=== PATIENT | female | born 1985 | race Caucasian/White ===

== ENCOUNTER → 2019-09-21 | Outpatient (CLI) | payer OTHER | LOC: COL.RAD 07:20 | DX: N83.201 Unspecified ovarian cyst, right side (principal); Q51.3 Bicornate uterus | CPT/HCPCS: A9585 ==

== ENCOUNTER → 2021-04-12 | Outpatient (CLI) | payer OTHER | LOC: MHCPAIN 09:58 | DX: M47.812 Spondylosis without myelopathy or radiculopathy, cervical region (principal); M54.2 Cervicalgia; R51.9 Headache, unspecified; G89.29 Other chronic pain | CPT/HCPCS: G0463 ==

== ENCOUNTER → 2021-05-15 | Outpatient (CLI) | payer OTHER | LOC: MHCPAIN 12:10 | DX: M47.812 Spondylosis without myelopathy or radiculopathy, cervical region (principal); M54.2 Cervicalgia; R51.9 Headache, unspecified ==

== ENCOUNTER → 2021-05-23 | Outpatient (CLI) | payer OTHER | LOC: MHCPAIN 15:10 | DX: M47.812 Spondylosis without myelopathy or radiculopathy, cervical region (principal); M54.2 Cervicalgia; R51.9 Headache, unspecified | CPT/HCPCS: G0463 ==

== ENCOUNTER 2022-01-30 08:51 | Day surgery (SDC) | payer OTHER ==
[~2022-01-30] VITALS: Ht 152.4 cm; Wt 76.6 kg
[2022-01-30] MEDS ORDERED: ESCITALOPRAM PO (10:02)
[2022-01-30] MEDS ORDERED: MAGNESIUM PO (10:02)
[2022-01-30] MEDS ORDERED: TOPAMAX50 MG PO ×2 (10:03)
[2022-01-30] MEDS ORDERED: PROTONIX 40MG T40 MG PO (10:03)
[2022-01-30] MEDS ORDERED: IMITREX50 MG PO (10:04)
[2022-01-30] MEDS ORDERED: ULTRAM 50MG TAB50 MG PO (10:05)
[2022-01-30] MEDS ORDERED: FORTEO250 MCG/ML PO (10:05)
[2022-01-30] MEDS ORDERED: CALCIUM WITH D31 CTB PO (10:06)
[2022-01-30] MEDS ORDERED: MASON NATURAL2000 IU PO (10:06)
[2022-01-30] MEDS ORDERED: WOMEN'S DAILY1 TAB PO (10:06)
[2022-01-30 10:37] VITALS: BP 130/95; PULSE 72; TEMP 98.6
[2022-01-30 11:00] VITALS: BP 121/95; PULSE 71; TEMP 98
--- NOTE | 2022-01-30 11:00 | NUR ---
Pt arrived from procedure, drowsy but oriented. Vitals obtained. Verbal report obtained from KELECHI Shelton. Pt requested grape juice and a warm muffin. Warm blankets provided. Call shaffer is within reach on side table. Pt denies nausea, no vomiting.
[2022-01-30 11:15] VITALS: BP 135/55; PULSE 75
--- NOTE | 2022-01-30 11:15 | NUR ---
Pt has finished her muffin and continues to drink juice. Vitals obtained. Pt expressed desire to be discharged. Corbin was contact by RN per pt request. Call shaffer remains within reach.
[2022-01-30 11:40] VITALS: BP 98/72; PULSE 64; TEMP 98
--- NOTE | 2022-01-30 11:40 | NUR ---
Pt returned to [facility] via cart and with stand and pivot, transferred to recliner with staff by side. Pt sleepy but oriented. VSS-see flowsheet. Pt given warm blankets, legs elevated and call light placed in reach. Dr Schmitt in to see pt post procedure. Pt given a muffin and coke per request.
[2022-01-30 11:45] VITALS: BP 115/73; PULSE 63
[2022-01-30 12:00] VITALS: BP 122/75; PULSE 61
--- NOTE | 2022-01-30 12:28 | NUR ---
Pt VS remain stable. Tolerated oral intake. DC teaching completed with pt and spouse present, verbalized understanding. IV removed, pressure dressing applied. Pt dressed. Taken via wheelchair to private vehicle for dc home with driving. Pt left with dc packet, backpack and crutches.
--- NOTE | 2022-01-30 12:49 | NUR ---
Initial visit; Patient and her thanked Digital Marketing Strategist for looking in on her and offering a 'Healing Prayer.'
== END 2022-01-30 12:30 | disposition home or self-care (01) ==
LOC: SDCO 08:51
DX: K64.0 First degree hemorrhoids (principal); E66.9 Obesity, unspecified; Z68.31 Body mass index [BMI] 31.0-31.9, adult
CPT/HCPCS: J2704; J7120